=== PATIENT | female | born 1960 ===

== ENCOUNTER 2023-11-08 11:42 | Outpatient (CLI) | payer OTHER, SELFPAY ==
--- NOTE | 2023-11-08 11:48 | MM_ITS ---
WS: [id number] BILATERAL 3D TOMOSYNTHESIS DIGITAL SCREENING MAMMOGRAPHY WITH CAD CLINICAL INFORMATION: SCREENING HISTORY: Screening mammogram. Chronic LEFT breast lump. COMPARISON: 2022 TECHNIQUE: Bilateral CC and MLO views. FINDINGS: The breasts are composed of heterogeneous fibroglandular density tissue, which can limit the detectio n of small underlying mass lesions. No suspicious mass, asymmetry, calcifications, or architectural d istortion. No evidence of malignancy. Biopsy clip LEFT breast. MM/[place] [id number] IMPRESSION: BI-RADS: 2-Benign FOLLOW UP: 1 Year Follow-up Recommend return to annual screening mammography.
== END 2023-11-08 11:43 | disposition home or self-care (01) ==
PROVIDERS: PCP Nurse Practitioner Family; Visit Provider Nurse Practitioner Family
DX: Z12.31 Encounter for screening mammogram for malignant neoplasm of breast (principal)
CPT/HCPCS: 77063; 77067

== ENCOUNTER 2024-11-08 08:15 | Outpatient (CLI) | payer OTHER, SELFPAY ==
--- NOTE | 2024-11-08 08:22 | MM_ITS ---
WS: [id number] BILATERAL SCREENING DIGITAL TOMOSYNTHESIS MAMMOGRAM WITH CAD HISTORY: SCREENING COMPARISON: 11/08/2023, 05/19/2022, 05/02/2013 Bilateral CC and MLO views with tomosynthesis and synthetic mammography submitted. Computer aided detection analyzed. Breast composition: The breasts are heterogeneously dense, which may obscure small masses. No suspicious masses, microcalcifications or architectural distortion. Biopsy clip upper outer quadrant LEFT breast. MM/MM scr BI tomosynthesis [id number] IMPRESSION: BI-RADS: 2 - Benign FOLLOW UP: 1 Year Follow-up
== END 2024-11-08 08:16 | disposition home or self-care (01) ==
LOC: RAD 08:18
PROVIDERS: PCP Nurse Practitioner Family; Visit Provider Nurse Practitioner Family
DX: Z12.31 Encounter for screening mammogram for malignant neoplasm of breast (principal); R92.333 Mammographic heterogeneous density, bilateral breasts; Z97.8 Presence of other specified devices
CPT/HCPCS: 77063; 77067